=== PATIENT | female | born 1990 | race American Indian/Alaskan Native ===

== ENCOUNTER 2019-03-13 23:12 | Emergency (ER) | payer SELFPAY ==
[2019-03-13 23:20] VITALS: BP 113/65
--- NOTE | 2019-03-14 00:53 | Emergency Department Report ---
Chief Complaint: Back Pain/Injury Stated Complaint: BACK PAIN Time Seen by Provider: 03/14/19 00:44 - HPI History of Present Illness: 28-year-old -[place] female presents to the emergency room complaining of back pain 1 week. Patient reports she has a history of chronic back pain. Patient states she is only taking Tylenol. Patient denies any new injury. Patient denies any urinary or bowel incontinence. Patient reports she has no problems ambulating. - Exam Vital Signs: Vital Signs 03/13/19 23:15 Temperature 98.9 F Pulse Rate 68 Respiratory 18 Rate Blood Pressure 113/65 O2 Sat by Pulse 97 Oximetry Physical Exam: Patient's alert and oriented 3 no acute distress. Cardiac regular rate and rhythm Respiratory clear to auscultation lower Back vertebral tenderness negative straight leg exam full range of motion able to ambulate without difficulties MSE screening note: Focused history and physical exam performed. Due to findings the following was ordered: Discussed the patient she can try taking ibuprofen or naproxen for pain management. Recommend patient to follow-up with handout was given. ED Disposition for MSE Clinical Impression: Back pain Disposition: Z-07 MED SCREENING EXAM-LEFT Is pt being admited?: No Does the pt Need Aspirin: No Condition: Stable Referrals: PRIMARY CARE, [Primary Care Provider] - 3-5 Days Forms: Work/School Release Form(ED)
== END 2019-03-14 00:50 | disposition left against medical advice (07) ==
LOC: ED 23:12
DX: M54.9 Dorsalgia, unspecified (principal)